=== PATIENT | male | born 1945 | race Two or more races ===

== ENCOUNTER 2024-06-16 10:20 | Inpatient (IN) | payer MEDICARE, OTHER ==
[~2024-06-16] VITALS: Ht 157.5 cm; Wt 57.0 kg
--- NOTE | 2024-06-16 10:32 | ECG ---
[facility] Test Date: 2024-06-16 Test Time: 10:26:16 Pat Name: KEITH RAHMAN Department: ER Room: 0286 Gender: M Transitional Care Manager: MADISYN : 1945 Requested By: WILBERTO TAMEZ Order Number: [id number] Reading MD: Kole Chan Measurements Intervals [place] Rate: 114 P: 52 SC: 139 QRS: -16 QRSD: 96 T: 65 QT: 332 QTc: 458 Interpretive Statements Sinus tachycardia Borderline left axis deviation Electronically Signed On 06-21-2024 15:14:13 PST by Kole Chan Please click the below link to view image of tracing.
--- NOTE | 2024-06-16 10:32 | ED.PDOC ---
Altered Mental Status HPI Comments [age] Year old male brought in by EMS from home for altered mental status. Patient's daughter states the patient had been confused at home today. He was seated on the couch, became extremely pale and looked as though he was going to pass out. He was assisted to the ground by family and did not have any reported injury according to EMS. Patient was noted to be tachycardic in the 130s on arrival by EMS. Patient's daughter states the patient is normally alert and oriented x4. Here the patient is oriented times 3, but is unable to state why he is here and does not recall the events leading to his arrival here. Daughter states this is not his baseline mental status. Time Seen by MD: 10:28 Reviewed Notes: Nurses Notes, Coffee Roaster Notes Allergies: Coded Allergies: NO KNOWN ALLERGIES (Unverified , 06/16/24) Information Source: Patient, Relative (Child) Mode of Arrival: EMS Past Medical History PAST MEDICAL HISTORY: DM, High Lipids, HTN Surgical History: Unobtainable Family History Family History: Pt Confused Social History Smoker: Unknown Alcohol: Unknown Drugs: Unknown Lives In: Home Unable to Obtain due to: Altered Mental Status Physical Exam General Appearance: No Apparent Distress, Thin, Other (Somnolent) HEENT: PERRL/EOMI, Other (Dry mucous membranes) Neck: Full Range of Motion, Non-Tender, Normal Inspection, Supple Respiratory: Lungs Clear, No Accessory Muscle Use, No Respiratory Distress, Normal Breath Sounds Cardiovascular: No Edema, No JVD, Tachycardia Breast Exam: Deferred Gastrointestinal: Non Tender, Soft Genitalia: Deferred Pelvic: Deferred Rectal: Deferred Extremities: Normal inspection, Normal range of motion, Non-tender, No pedal edema Neurologic: Alert (Oriented x3), Normal Affect, Normal Mood, Other (Appears let hargic, occasionally inappropriately answers questions or does not answer, moves all extremities, no gross focal deficit.) Cerebellar Function: Unable to Test, NOT DONE Reflexes: NOT DONE Skin: Dry, Normal Color, Warm Lymphatic: NOT DONE EKG EKG : Comments Sinus tach, rate 114, normal LA and QRS intervals, QTC 458, left axis deviation normal QRS, nonspecific T change. Was a procedure done? Was a procedure done?: No Differential Diagnosis (ALOC) Differential Diagnosis: Dehydration, Hypoglycemia, Encephalopathy, Meningitis, Sepsis, Hypoxemia, Closed Head Injury, CVA, Mass Lesion, SAH, Other (UTI, electrolyte imbalance, mi, arrhythmia, among others) X-Ray, Labs, Meds, VS Vital Signs Date Time Temp Pulse Resp B/P (MAP) Pulse Ox O2 Delivery O2 Flow Rate FiO2 06/16/24 13:57 129 19 91 Room Air* 0 21 06/16/24 13:57 129 18 108/28 (54) 94 06/16/24 13:15 16 94 Room Air* 0 21 06/16/24 10:26 114 06/16/24 10:23 98.8 115 18 145/54 (84) 93 Lab Test 06/16/24 13:20 06/16/24 12:27 06/16/24 11:17 06/16/24 10:53 Range/Units POC Glucose 117 H 70-106 mg/dl Lactic Acid Level 1.1 3.5 *H 0.4-2.0 mmol/L Troponin I High Sensitivity 12 8 </=54 ng/L Influenza Type A Antigen Negative Negative Influenza Type B Antigen Negative Negative SARS-CoV-2 Antigen (Rapid) Negative NEGATIVE White Blood Count 6.6 4.4-10.8 10^3/uL Red Blood Count 3.32 L 4.5-5.90 10^6/uL Hemoglobin 11.2 L 13.5-17.5 g/dL Hematocrit 33.9 L 41.0-53.0 % Mean Corpuscular Volume 102.2 H 80.0-100.0 fL Mean Corpuscular Hemoglobin 33.6 H 28.0-32.0 pg Mean Corpuscular Hemoglobin Concent 32.9 32.0-36.0 g/dL Red Cell Distribution Width 13.4 11.8-14.3 % Platelet Count 144 140-450 10^3/uL Mean Platelet Volume 9.3 6.9-10.8 fL Neutrophils (%) (Auto) 88.6 H 37.0-80.0 % Lymphocytes (%) (Auto) 3.0 L 10.0-50.0 % Monocytes (%) (Auto) 7.9 0.0-12.0 % Eosinophils (%) (Auto) 0.2 0.0-7.0 % Basophils (%) (Auto) 0.3 0.0-2.0 % Neutrophils # (Auto) 5.9 1.6-8.6 10 ^3/uL Lymphocytes # (Auto) 0.2 L 0.4-5.4 10 ^3/uL Monocytes # (Auto) 0.5 0-1.3 10 ^3/uL Eosinophils # (Auto) 0 0-0.8 10 ^3/uL Basophils # (Auto) 0 0-0.2 10 ^3/uL Nucleated Red Blood Cells 0.0 % Sodium Level 140 136-145 mmol/L Potassium Level 5.9 *H 3.5-5.1 mmol/L Chloride Level 108 H 98-107 mmol/L Carbon Dioxide Level 21 20-31 mmol/L Anion Gap 11 5-15 Blood Urea Nitrogen 47 H 9-23 mg/dL Creatinine 3.16 H 0.700-1.30 mg/dL Glomerular Filtration Rate Calc 19 >90 mL/min BUN/Creatinine Ratio 14.9 10.0-20.0 Serum Glucose 115 H 74-106 mg/dL Calcium Level 9.4 8.7-10.4 mg/dL Total Bilirubin < 0.2 L 0.2-1.0 mg/dL Aspartate Amino Transferase (AST) 14 13-40 U/L Alanine Aminotransferase (ALT) 12 7-40 U/L Alkaline Phosphatase 67 46-116 U/L B-Type Natriuretic Peptide 85.54 0-100 pg/mL Total Protein 5.9 5.7-8.2 g/dL Albumin 4.0 3.2-4.8 g/dL Current Medications Medications (Trade) Dose Ordered Sig/Louisa Route Start Time Stop Time Status Last Admin Insulin Human Regular (InsuLIN R) 10 units ONCE ONCE IV 06/16/24 12:30 06/16/24 12:31 DC 06/16/24 13:23 Dextrose 50 ml ONCE ONCE IV 06/16/24 12:30 06/16/24 12:31 DC 06/16/24 13:31 Albuterol (Ventolin Medneb) 20 mg ONCE ONCE NEB 06/16/24 12:30 06/16/24 12:31 DC 06/16/24 13:11 Calcium Gluconate/ Sodium Chloride 50 ml @ 100 mls/hr ONCE ONCE IV 06/16/24 12:30 06/16/24 12:59 DC 06/16/24 13:30 Sodium Bicarbonate 50 ml ONCE ONCE IV 06/16/24 12:30 06/16/24 12:31 DC 06/16/24 13:30 Zirconium Oxide (Lokelma) 10 gm ONCE ONCE PO 06/16/24 12:30 06/16/24 12:31 DC 06/16/24 13:30 Sodium Chloride 1,000 ml @ 1,000 mls/hr Q1H ONCE IV 06/16/24 12:30 06/16/24 13:29 DC 06/16/24 13:30 [place] [id number] Ph: [phone] DIAGNOSTIC IMAGING Diagnostic Imaging Report : [id number] Signed PATIENT: Edilson Tapia ACCT: [id number] UNIT: [id number] : 1945 LOC: ER ROOM / BED: / AGE / SEX: 78 / M ADM STATUS: REG ER SERVICE 33 ORDERING PHYSICIAN: WILBERTO SOL MD PROCEDURE(s): CXRP - CHEST PORTABLE REASON: aloc ORDER NUMBER(s): [id number], ACCESSION NUMBER(s): [id number] CHEST RADIOGRAPH Indication: aloc Technique: Single frontal view of the chest was obtained COMPARISON: None FINDINGS: Lines and Tubes: None Lungs: Clear Pleura: No effusion. No pneumothorax. Cardiomediastinal contours: Unremarkable Bones: Unremarkable IMPRESSION: No acute disease. ATED BY: MAZIN LEDEZMA MD DICTATED DATE/TIME: 06/16/24 105 SIGNED BY: MAZIN LEDEZMA MD SIGNED DATE/TIME: 06/16/24 105 CC: [place] [address] Ph: [phone] DIAGNOSTIC IMAGING Diagnostic Imaging Report : [id number] Signed PATIENT: Edilson Tapia ACCT: [id number] UNIT: [id number] : 1945 LOC: ER ROOM / BED: / AGE / SEX: 78 / M ADM STATUS: REG ER SERVICE 103 ORDERING PHYSICIAN: WILBERTO SOL MD PROCEDURE(s): HWOCT - HEAD WITHOUT CONTRAST REASON: aloc ORDER NUMBER(s): [id number], ACCESSION NUMBER(s): [id number] EXAM: CT HEAD WITHOUT CONTRAST INDICATION: aloc TECHNIQUE: CT of the head without intravenous contrast. Coronal and sagittal reformatted images are submitted. Radiation Dose : 1. Head: CT Dose: CTDI volume is 68.4 mGy. Dose-length product is 1149.7 mGy*cm The dose indicators for CT are the volume Computed Tomography (CT) Dose Index (CTDIvol) and the Dose Length Product (DLP), and are measured in units of mGy and mGy-cm, respectively. These indicators are not patient dose, but values generated from the CT scanner acquisition factors. The report includes radiation exposure data for exposures received during this examination. All CT scans at this medical facility are performed using dose modulation techniques as appropriate to a performed exam including the following: Automated exposure control was utilized; adjustment of the MA and/or KV according to patient size; and use of iterative reconstruction technique. COMPARISON: None FINDINGS: There is no evidence of acute intracranial hemorrhage, extra-axial collection, mass effect, midline shift, herniation or hydrocephalus. Mild diffuse cortical volume loss. The ventricles, sulci and cisterns are age appropriate. The bain-white differentiation is intact. The visualized paranasal sinuses and mastoid air cells are clear. No depressed calvarial fracture. The surrounding soft tissues are unremarkable. IMPRESSION: 1. No evidence of acute intracranial abnormality. ATED BY: KELL LAZO MD DICTATED DATE/TIME: 06/16/24 105 SIGNED BY: KELL LAZO MD SIGNED DATE/TIME: 06/16/24 105 CC: X-Ray, Labs, Meds, VS Comment 78-year-old male with a history of hypertension, diabetes and dyslipidemia presenting with altered mental status, tachycardia and a near syncopal episode at home Vitals remarkable for heart rate 115, BP 145/54, oxygen saturation 93% on room air Exam remarkable for lethargy, dry mucous membranes, confusion Rhythm strip independently interpreted by me: Sinus tach, rate 114, no ectopy. CT head unremarkable Chest x-ray unremarkable CBC unremarkable, metabolic panel remarkable for potassium 5.9, BUN 47, creatinine 3.16, glucose 115, lactate 3.5, troponin negative, BNP pending, UA pending Patient treated with the following in the ED: 2 L 0.9 normal saline regular insulin 10 units IV, D50 50 mL IV, albuterol 20 mg med neb, Lokelma 10 g p.o., sodium bicarb 50 mL IV, calcium gluconate 1 g IV , Zosyn 4.5 g IV, vancomycin 1 g IV. On re-evaluation, patient is still somnolent but arousable. Plan is to admit the patient for electrolyte correction and neurology/nephrology evaluation. Time of 1ST Reevaluation: 13:01 Reevaluation 1ST: Improved Patient Education/Counseling: Diagnosis, Treatment Family Education/Counseling: Diagnosis, Treatment Sepsis Sepsis Reasesment Focused Exam Sepsis focused exam: focus exam completed (1412, blood pressure 79 systolic, tachycardic in the 120s, 2nd normal saline bolus ordered, IV antibiotics ordered.) Departure 1 Departure Time of Disposition: 13:01 Impression: Primary Impression: Metabolic encephalopathy Additional Impressions: Acute renal failure Qualified Codes: N17.9 - Acute kidney failure, unspecified Hyperkalemia Sepsis Qualified Codes: A41.9 - Sepsis, unspecified organism Disposition: 09 ADMITTED INPATIENT Admit to: Tele Condition: Guarded Critical Care Note Critical Care Time?: Yes (55 min-critical care time only) Critical care comment: Critical care time including multiple bedside re-evaluations, review of lab and imaging studies, and discussion of the case with the admitting and consulting providers. Stability Stability form required: No Heart Score Heart Score: Heart Score Response (Comments) Value History N/A 0 EKG N/A 0 Age N/A 0 Risk Factors N/A 0 Troponin N/A 0 Total 0 I personally scribed for WILBERTO SOL MD ([email or web address]) on 06/16/24 at 10:57. Electronically submitted by Yaneth Aguayo ([email or web address]). I personally scribed for WILBERTO SOL MD ([email or web address]) on 06/16/24 at 11:06. Electronically submitted by Yaneth Aguayo ([email or web address]). I personally scribed for WILBERTO SOL MD ([email or web address]) on 06/16/24 at 13:13. Electronically submitted by Yaneth Aguayo ([email or web address]). WILBERTO SOL MD Jun 16, 2024 10:32
--- NOTE | 2024-06-16 10:53 | DVH ---
CHEST RADIOGRAPH Indication: aloc Technique: Single frontal view of the chest was obtained COMPARISON: None FINDINGS: Lines and Tubes: None Lungs: Clear Pleura: No effusion. No pneumothorax. Cardiomediastinal contours: Unremarkable Bones: Unremarkable IMPRESSION: No acute disease.
--- NOTE | 2024-06-16 10:57 | DVH ---
EXAM: CT HEAD WITHOUT CONTRAST INDICATION: aloc TECHNIQUE: CT of the head without intravenous contrast. Coronal and sagittal reformatted images are submitted. Radiation Dose : 1. Head: CT Dose: CTDI volume is 68.4 mGy. Dose-length product is 1149.7 mGy*cm The dose indicators for CT are the volume Computed Tomography (CT) Dose Index (CTDIvol) and the Dose Length Product (DLP), and are measured in units of mGy and mGy-cm, respectively. These indicators are not patient dose, but values generated from the CT scanner acquisition factors. The report includes radiation exposure data for exposures received during this examination. All CT scans at this medical facility are performed using dose modulation techniques as appropriate to a performed exam including the following: Automated exposure control was utilized; adjustment of the MA and/or KV according to patient size; and use of iterative reconstruction technique. COMPARISON: None FINDINGS: There is no evidence of acute intracranial hemorrhage, extra-axial collection, mass effect, midline s hift, herniation or hydrocephalus. Mild diffuse cortical volume loss. The ventricles, sulci and cisterns are age appropriate. The bain-white differentiation is intact. The visualized paranasal sinuses and mastoid air cells are clear. No depressed calvarial fracture. The surrounding soft tissues are unremarkable. IMPRESSION: 1. No evidence of acute intracranial abnormality.
[2024-06-16 11:33] LABS: Basophils # (auto) 0 10 ^3/uL (0-0.2); Eosinophils # (auto) 0 10 ^3/uL (0-0.8); Hemoglobin 11.2 g/dL (13.5-17.5); Lymphocytes # (auto) 0.2 10 ^3/uL (0.4-5.4); Monocytes # (auto) 0.5 10 ^3/uL (0-1.3)
[2024-06-16 11:37] LABS: Basophils % (auto) 0.3 % (0.0-2.0); Eosinophils % (auto) 0.2 % (0.0-7.0); Hematocrit 33.9 % (41.0-53.0); Mean Corpuscular Hemoglobin 33.6 pg (28.0-32.0); Mean Corpuscular Hgb Conc. 32.9 g/dL (32.0-36.0); Mean Corpuscular Volume 102.2 fL (80.0-100.0); Monocytes % (auto) 7.9 % (0.0-12.0); Neutrophils # (auto) 5.9 10 ^3/uL (1.6-8.6); Neutrophils % (auto) 88.6 % (37.0-80.0); Platelet Count (auto) 144 10^3/uL (140-450); Red Blood Cells 3.32 10^6/uL (4.5-5.90); Red Cell Distribution Width 13.4 % (11.8-14.3); White Blood Cell 6.6 10^3/uL (4.4-10.8)
[2024-06-16 11:42] LABS: Alanine Aminotransferase 12 U/L (7-40); Alkaline Phosphatase 67 U/L (46-116); Anion Gap 11 (5-15); Aspartate Aminotransferase 14 U/L (13-40); BUN/Creatinine Ratio 14.9 (10.0-20.0); Calcium 9.4 mg/dL (8.7-10.4); Carbon Dioxide 21 mmol/L (20-31); Sodium 140 mmol/L (136-145); Total Protein 5.9 g/dL (5.7-8.2)
[2024-06-16 11:50] LABS: Bilirubin, Total < 0.2 mg/dL (0.2-1.0); Blood Urea Nitrogen 47 mg/dL (9-23); Chloride 108 mmol/L (98-107); Glucose 115 mg/dL (74-106)
[2024-06-16 11:53] LABS: Lactic Acid w/Reflex 3.5 mmol/L (0.4-2.0); Potassium 5.9 mmol/L (3.5-5.1)
[2024-06-16 12:43] LABS: Rapid Influenza A Negative (Negative); Rapid Influenza B Negative (Negative)
[2024-06-16 12:51] LABS: COVID19 ANTIGEN SOFIA FIA NEGATIVE (NEGATIVE)
[2024-06-16] MEDS: ALBUTEROL SULF 2.5 MG/0.5ML(0.5%) NEB SOLN NEB ONE (13:11)
[2024-06-16] MEDS: InsuLIN REG 1unit/0.01ml Soln (100units/ml) IV ONE (13:23)
[2024-06-16] MEDS: SODIUM ZIRCONIUM CYCL 10 GM PAK PO ONE (13:30)
[2024-06-16] MEDS: CALCIUM GLUC 1,000mg/50ml-NS 50 ML IV ONE (13:30)
[2024-06-16] MEDS: SODIUM BICARB 8.4% 50Meq/50ml SYR Vial IV ONE (13:30)
[2024-06-16] MEDS: SODIUM CHLORIDE 0.9% 1,000 ML IV ONE ×3 (13:30→14:33)
[2024-06-16] MEDS: DEXTROSE (50%) 50ML SYRG IV ONE (13:31)
[2024-06-16 13:57] VITALS: PULSE 129; RESP 19; O2SAT 91
[2024-06-16] MEDS: PIPERACILLIN-TAZO 4.5GM 100 ML IV ONE (14:46)
[2024-06-16] MEDS: VANCOMYCIN 1GM/250ML KIT 250 ML IV ONE (15:09)
--- NOTE | 2024-06-16 15:12 | DVH ---
CHEST RADIOGRAPH Indication: S/P CENTRAL LINE PLACEMENT Technique: Single frontal view of the chest was obtained Comparison: XY CHEST PORTABLE on DOS: 06/16/24 FINDINGS: Lines and Tubes: Left internal jugular catheter in place with the tip at the cavoatrial junction. Lungs: Decreased inspiratory effort when compared to chest x-ray of 10:41 a.m same day. Pleura: No effusion. No pneumothorax. Cardiomediastinal contours: Unremarkable Bones: No acute osseous abnormality. IMPRESSION: 1. Decreased inspiratory effort when compared to previous study 10:41 a.m.. 2. Left internal jugular catheter in place at the cavoatrial junction. HS:Y
[2024-06-16] MEDS: NOREPINEPHRINE BITARTRATE 16 MG in SODIUM CHL 0.9% 234 ML IV SCH (16:36)
[2024-06-16] MEDS: ACETAMINOPHEN 325 MG TAB PO PRN (17:27)
[2024-06-16 17:37] LABS: Urine Bacteria None Seen /hpf (None Seen)
[2024-06-16 17:52] LABS: Urine Blood Negative /uL (Negative); Urine Clarity Clear (Clear); Urine Color Yellow (Yellow); Urine Hyaline Cast FEW /lpf (0 - 2); Urine Protein, UAD TRACE (Negative); Urine Specific Gravity 1.016 (1.001-1.035); Urine Squamous Epithelial Cell None Seen /hpf (<5); Urine Urobilinogen Normal (Negative); Urine WBC <1 /hpf (0 - 3); Urine pH 5.5 (5.0-9.0)
[2024-06-16 19:30] VITALS: O2SAT 91
[2024-06-16] MEDS ORDERED: ONDANSETRON HCL 4 MG/2 ML VIAL IV PRN (19:30)
[2024-06-16] MEDS ORDERED: NITROGLYCERIN 0.4 MG SL TAB SL PRN (19:30)
[2024-06-16] MEDS ORDERED: ACETAMINOPHEN 325 MG TAB PO PRN (19:30)
[2024-06-16] MEDS ORDERED: MORPHINE SULFATE INJ 2 MG/ml SYRG IV PRN (19:30)
[2024-06-16 20:16] LABS: Alanine Aminotransferase 11 U/L (7-40); Albumin 3.5 g/dL (3.2-4.8); Alkaline Phosphatase 55 U/L (46-116); Anion Gap 13 (5-15); Aspartate Aminotransferase 20 U/L (13-40); Potassium 4.1 mmol/L (3.5-5.1); Sodium 142 mmol/L (136-145)
--- NOTE | 2024-06-16 20:22 | DVHHP2 ---
History of Present Illness Reason for Visit: Altered mental status History of Present Illness 78-year-old male presents for evaluation of altered mental status. Patient was noted to be slightly confused at home where they checked his blood pressure was noted to be low. In route patient was noted to be tachycardic in the 130s on arrival patient's blood pressure was in the 70s. Patient is currently oriented x3. Denies chest pain or shortness for breath. Past Medical History Hypertension, dyslipidemia and diabetes mellitus Past Surgical History Denies Family History Noncontributory Smoke: No ALCOHOL: none Drugs: None Lives: with Family Review of Systems Review of Systems Review of systems are currently negative otherwise addressed in HPI Allergies: Coded Allergies: NO KNOWN ALLERGIES (Unverified , 06/16/24) Medications Current Medications Medications Dose Ordered Sig/Louisa Route Start Time Stop Time Status Last Admin Dose Admin Norepinephrine Bitartrate 16 mg/ Sodium Chloride 250 ml @ 1.875 mls/ hr Q24H IV 06/16/24 16:15 06/16/24 16:36 1.875 MLS/HR Acetaminophen 650 mg Q4HP PRN PO 06/16/24 17:15 06/16/24 17:27 650 MG Ondansetron HCl 4 mg Q4HP PRN IV 06/16/24 19:30 UNV Acetaminophen 650 mg Q6HP PRN PO 06/16/24 19:30 UNV Nitroglycerin 0.4 mg Q5MINP PRN SL 06/16/24 19:30 UNV Morphine Sulfate 2 mg Q30M PRN IV 06/16/24 19:30 UNV Ceftriaxone Sodium 50 ml @ 100 mls/hr DAILY@09 IV 06/17/24 09:00 UNV Exam Vital Signs Vital Signs Date Time Temp Pulse Resp B/P (MAP) Pulse Ox O2 Delivery O2 Flow Rate FiO2 06/16/24 20:00 108 15 116/95 (102) 90 06/16/24 19:30 Room Air* 0 21 06/16/24 18:27 98.7 Exam Gen: 78-year-old male in mild distress Skin: Warm, dry, normal color and texture, no rash. HEENT: Normocephalic atraumatic, mucous membranes moist and pink. Neck: Cervical and supraclavicular nodes normal without enlargement, trachea is midline, thyroid gland is normal without masses. Pulmonary: Clear to auscultation and percussion bilaterally. Cardiac: Regular rate and rhythm. No murmur Abdomen: Soft, nontender, nondistended, bowel sounds present all 4 quadrants, no guarding, no rigidity, no organomegaly. Extremities: No cyanosis, clubbing, no edema Neuro: Cranial nerves II through XII grossly intact, normal affect and speech, no focal motor deficits. Labs/Xrays ORDERING PHYSICIAN: WILBERTO SOL MD PROCEDURE(s): CXRP - CHEST PORTABLE REASON: aloc ORDER NUMBER(s): [id number], ACCESSION NUMBER(s): [id number] CHEST RADIOGRAPH Indication: aloc Technique: Single frontal view of the chest was obtained COMPARISON: None FINDINGS: Lines and Tubes: None Lungs: Clear Pleura: No effusion. No pneumothorax. Cardiomediastinal contours: Unremarkable Bones: Unremarkable IMPRESSION: No acute disease. RING PHYSICIAN: WILBERTO SOL MD PROCEDURE(s): HWOCT - HEAD WITHOUT CONTRAST REASON: aloc ORDER NUMBER(s): [id number], ACCESSION NUMBER(s): [id number] EXAM: CT HEAD WITHOUT CONTRAST INDICATION: aloc TECHNIQUE: CT of the head without intravenous contrast. Coronal and sagittal reformatted images are submitted. Radiation Dose : 1. Head: CT Dose: CTDI volume is 68.4 mGy. Dose-length product is 1149.7 mGy*cm The dose indicators for CT are the volume Computed Tomography (CT) Dose Index (CTDIvol) and the Dose Length Product (DLP), and are measured in units of mGy and mGy-cm, respectively. These indicators are not patient dose, but values generated from the CT scanner acquisition factors. The report includes radiation exposure data for exposures received during this examination. All CT scans at this medical facility are performed using dose modulation techniques as appropriate to a performed exam including the following: Automated exposure control was utilized; adjustment of the MA and/or KV according to patient size; and use of iterative reconstruction technique. COMPARISON: None FINDINGS: There is no evidence of acute intracranial hemorrhage, extra-axial collection, mass effect, midline shift, herniation or hydrocephalus. Mild diffuse cortical volume loss. The ventricles, sulci and cisterns are age appropriate. The bain-white differentiation is intact. The visualized paranasal sinuses and mastoid air cells are clear. No depressed calvarial fracture. The surrounding soft tissues are unremarkable. IMPRESSION: 1. No evidence of acute intracranial abnormality. Labs Test 06/16/24 18:21 06/16/24 17:10 06/16/24 13:20 06/16/24 12:27 Range/Units Urine Color Yellow Yellow Urine Clarity Clear Clear Urine pH 5.5 5.0-9.0 Urine Specific [place] 1.016 1.001-1.035 Urine Protein Trace H Negative Urine Ketones Negative Negative Urine Blood Negative Negative /uL Urine Nitrite Negative Negative Urine Bilirubin Negative Negative Urine Urobilinogen Normal Negative mg/dL Urine Leukocyte Esterase Negative Negative /uL Urine RBC 1 0 - 3 /hpf Urine WBC <1 0 - 3 /hpf Urine Squamous Epithelial Cells None seen <5 /hpf Urine Bacteria None seen None Seen /hpf Urine Hyaline Casts Few 0 - 2 /lpf Urine Glucose Normal Normal mg/dL POC Glucose 117 H 70-106 mg/dl Lactic Acid Level 1.1 0.4-2.0 mmol/L Troponin I High Sensitivity 12 </=54 ng/L Test 06/16/24 11:17 06/16/24 10:53 Range/Units Influenza Type A Antigen Negative Negative Influenza Type B Antigen Negative Negative SARS-CoV-2 Antigen (Rapid) Negative NEGATIVE White Blood Count 6.6 4.4-10.8 10^3/uL Red Blood Count 3.32 L 4.5-5.90 10^6/uL Hemoglobin 11.2 L 13.5-17.5 g/dL Hematocrit 33.9 L 41.0-53.0 % Mean Corpuscular Volume 102.2 H 80.0-100.0 fL Mean Corpuscular Hemoglobin 33.6 H 28.0-32.0 pg Mean Corpuscular Hemoglobin Concent 32.9 32.0-36.0 g/dL Red Cell Distribution Width 13.4 11.8-14.3 % Platelet Count 144 140-450 10^3/uL Mean Platelet Volume 9.3 6.9-10.8 fL Neutrophils (%) (Auto) 88.6 H 37.0-80.0 % Lymphocytes (%) (Auto) 3.0 L 10.0-50.0 % Monocytes (%) (Auto) 7.9 0.0-12.0 % Eosinophils (%) (Auto) 0.2 0.0-7.0 % Basophils (%) (Auto) 0.3 0.0-2.0 % Neutrophils # (Auto) 5.9 1.6-8.6 10 ^3/uL Lymphocytes # (Auto) 0.2 L 0.4-5.4 10 ^3/uL Monocytes # (Auto) 0.5 0-1.3 10 ^3/uL Eosinophils # (Auto) 0 0-0.8 10 ^3/uL Basophils # (Auto) 0 0-0.2 10 ^3/uL Nucleated Red Blood Cells 0.0 % B-Type Natriuretic Peptide 85.54 0-100 pg/mL Assessment/Plan Assessment/Plan Assessment Symptomatic hypotension Rule out sepsis Acute kidney injury Diabetes mellitus Plan Admit the patient to [facility] to the hospitalist Torresn Blood cultures pending Maintenance IV fluids Echocardiogram pending Resume home medications Continue treatment per orders. Plan discussed with: Patient My Orders Orders - DON CHILDRESS Procedure Category Date Status Time Basic Metabolic Panel LAB 06/17/24 Verified 04:00 *Dr. [facility] CONS 06/16/24 Transmitted -[place] 19:20 Admit ADMIT 06/16/24 Transmitted 19:20 Ondansetron Hcl PHA 06/16/24 Logged (Zofran) 19:30 Complete Blood Count LAB 06/17/24 Verified 04:00 Echo 2d Mode Cardiac US 06/16/24 Logged DOP 19:20 Condition: Critical BORIS 06/16/24 In Process 19:20 Acetaminophen Tablet PHA 06/16/24 Logged (Tylenol Tablet) 19:30 Bedrest With Bathroom BORIS 06/16/24 In Process Privileg 19:20 Nitroglycerin PHA 06/16/24 Logged Sublingual (Ntrostat 19:30 Morphine Sulfate PHA 06/16/24 Logged Injection 19:30 Stat Ekg For Chest BORIS 06/16/24 In Process Pain 19:20 Notify Of Changes BORIS 06/16/24 In Process From Base 19:20 Psych Social Worker For BORIS 06/16/24 In Process 24 Hours 19:20 Emergency Dysrhythmia [facility] 06/16/24 In Process Protocol 19:20 Rhythm Strips Once BORIS 06/16/24 In Process Every Shift 19:20 Oxygen By Nasal RT 06/16/24 Transmitted Cannula 19:20 Ceftriaxone 1gm/50ml PHA 06/17/24 Logged D5w (Rocephin) 09:00 Date of Service: Jun 16, 2024 Billing Provider: DON CHILDRESS Common Visit Codes: [id number] INP/OBS CARE (HIGH) DON CHILDRESS Jun 16, 2024 20:22
[2024-06-16 20:26] LABS: Bilirubin, Total 0.2 mg/dL (0.2-1.0); Blood Urea Nitrogen 37 mg/dL (9-23); Calcium 8.5 mg/dL (8.7-10.4); Carbon Dioxide 18 mmol/L (20-31); Chloride 111 mmol/L (98-107); Glucose 126 mg/dL (74-106); Total Protein 5.3 g/dL (5.7-8.2)
[2024-06-16] MEDS: cefTRIAXone 1GM/50ML D5W 50 ML IV SCH (20:45)
[2024-06-17 07:32] LABS: Basophils # (auto) 0 10 ^3/uL (0-0.2); Eosinophils # (auto) 0 10 ^3/uL (0-0.8); Hemoglobin 10.3 g/dL (13.5-17.5); Lymphocytes # (auto) 0.6 10 ^3/uL (0.4-5.4); Mean Corpuscular Hemoglobin 34.1 pg (28.0-32.0)
[2024-06-17 07:35] LABS: Basophils % (auto) 0.3 % (0.0-2.0); Eosinophils % (auto) 0.1 % (0.0-7.0); Hematocrit 30.8 % (41.0-53.0); Mean Corpuscular Hgb Conc. 33.5 g/dL (32.0-36.0); Mean Corpuscular Volume 101.8 fL (80.0-100.0); Monocytes # (auto) 0.6 10 ^3/uL (0-1.3); Monocytes % (auto) 8.8 % (0.0-12.0); Neutrophils # (auto) 5.7 10 ^3/uL (1.6-8.6); Neutrophils % (auto) 81.8 % (37.0-80.0); Platelet Count (auto) 129 10^3/uL (140-450); Red Blood Cells 3.02 10^6/uL (4.5-5.90); Red Cell Distribution Width 13.6 % (11.8-14.3)
[2024-06-17 07:37] LABS: Potassium 4.6 mmol/L (3.5-5.1); Sodium 142 mmol/L (136-145)
[2024-06-17 07:38] LABS: Anion Gap 6 (5-15); Carbon Dioxide 24 mmol/L (20-31); Chloride 112 mmol/L (98-107)
[2024-06-17 07:39] LABS: Calcium 8.7 mg/dL (8.7-10.4)
[2024-06-17 07:43] LABS: BUN/Creatinine Ratio 13.6 (10.0-20.0); Blood Urea Nitrogen 37 mg/dL (9-23); Glucose 90 mg/dL (74-106)
[2024-06-17 08:00] VITALS: PULSE 88; RESP 16; O2SAT 97
--- NOTE | 2024-06-17 12:16 | DVHSR ---
APPROVED REPORT EXAM: Two-dimensional and M-mode echocardiogram with Doppler and color Doppler. Blood Pressure: 129/54 mmHg INDICATION EF RISK FACTORS Height: 5'2, Weight: 120 DIMENSIONS LVDd4.4 (3.8-5.7cm)LA (2D)3.3 (1.9-4.0cm)Aortic Root3.6 (2.0-3.7cm) LVDs3.2 (2.5-4.0cm)LA (MM) (1.9-4.0cm)Aortic Cusp Exc1.5 (1.5-2.0cm) EF (%) 55.0 (55-70%)Rt. Atrium2.7 (1.9-4.0cm)Asc. Aorta cm IVSd0.8 (0.7-1.1cm)RV (D) (1.8-2.4cm) PWd0.7 (0.7-1.1cm) Mitral Valve MitralMitral Stenosis E wave0.81m/sMV Mean GR.mmHg A wave1.14m/sMV Peak GR.mmHg E/A ratio0.72D MVAcm2 DECEL [id number] 1/2 [place] Aortic Valve Aortic ValveAortic Stenosis V11.28m/Sridhar Mean GR.4mmHg V21.23m/Sridhar Peak GR.6mmHg LVOT Diameter1.4 (1.8-2.4cm)Doppler AVA1.60cm2 Pulmonic Valve V21.04m/s LEFT VENTRICLE The left ventricle is of normal size. Wall thickness is normal. Ejection fraction is normal and is estimated at 55-60%. No regional wall motion abnormalities. Diastolic function is indeterminate. RIGHT VENTRICLE The right ventricle is of normal size. Right ventricular systolic function is normal. ATRIA Both atria are of normal size. MITRAL VALVE Normal structure and function. No significant regurgitation. PULMONIC VALVE Likely normal. TRICUSPID VALVE Normal structure and function. There is trace tricuspid regurgitation. PA systolic pressure isn't a dequately estimated. AORTIC VALVE Normal structure and function. GREAT VESSELS The aortic root is of normal size. PERICARDIAL EFFUSION No pericardial effusion. IVC is not well visualized. Other Information Technically limited study due to body habitus. Conclusion The study is technically limited. Normal left ventricular size and systolic function. Ejection fraction is estimated at 55-60%. Normal right ventricular size and systolic function. No hemodynamically significant valvular disease. PA systolic pressure could not be adequately estimated.
[2024-06-17] MEDS: LACTATED RINGER'S 1,000 ML IV SCH (15:11)
--- NOTE | 2024-06-17 15:22 | DVHINCON2 ---
Date of service: Jun 17, 2024 Referring Physician Hospitalist Reason for Consultation Acute kidney injury History of Present Illness 78-year-old male patient is a poor historian unable to obtain history present presents to the hospital with altered mental state. Upon my interview patient says he is feeling better. Nephrology is consulted due to elevated creatinine level. I do not have any baseline for evaluation. He denies any previous history of kidney problems. He currently has a central line in place he is currently not on pressors. Presentation he was found to be hypotensive Allergies: Coded Allergies: NO KNOWN ALLERGIES (Unverified , 06/16/24) Current Medications Current Medications Medications (Trade) Dose Ordered Sig/Louisa Route PRN Reason Start Time Stop Time Status Last Admin Norepinephrine Bitartrate 16 mg/ Sodium Chloride 250 ml @ 1.875 mls/ hr Q24H IV 06/16/24 16:15 06/16/24 16:36 Acetaminophen (Tylenol Tablet) 650 mg Q4HP PRN PO MILD PAIN (1-3 PAIN SCALE) 06/16/24 17:15 06/16/24 17:27 Ondansetron HCl (Zofran) 4 mg Q4HP PRN IV NAUSEA / VOMITING 06/16/24 19:30 Acetaminophen (Tylenol Tablet) 650 mg Q6HP PRN PO PAIN SCALE 1-3 OR TEMP>100.4 06/16/24 19:30 Nitroglycerin (Ntrostat Sublingual) 0.4 mg Q5MINP PRN SL FOR CHEST PAIN 06/16/24 19:30 Morphine Sulfate 2 mg Q30M PRN IV FOR CHEST PAIN 06/16/24 19:30 Ceftriaxone Sodium 50 ml @ 100 mls/hr DAILY@09 IV 06/16/24 20:24 06/17/24 10:25 Lactated Ringer's 1,000 ml @ 75 mls/hr [id number] IV 06/17/24 14:45 06/17/24 15:11 Review of Systems Altered mental status H&P Exam Vital Signs/I&O Vital Sign Date Time Temp Pulse Resp B/P (MAP) Pulse Ox O2 Delivery O2 Flow Rate FiO2 06/17/24 14:00 87 15 125/68 (87) 99 06/17/24 10:00 99.2 99.2 06/17/24 08:00 Nasal Cannula* 2 28 Intake and Output 06/16/24 06/17/24 19:00 07:00 Intake Total 4407.500 ml Output Total 700 ml Balance 4407.500 ml -700 ml Intake IV Total 4407.500 ml Output Urine Total 700 ml Physical Exam Elderly male Nonacute distress Mildly confused Abdomen is soft No pitting edema Cheema catheter Left IJ central line Labs/Diagnostic Data Labs/Diagnostic Data Laboratory Tests Test 06/17/24 06:44 06/16/24 18:21 06/16/24 17:10 06/16/24 13:20 Range/Units White Blood Count 7.0 4.4-10.8 10^3/uL Red Blood Count 3.02 L 4.5-5.90 10^6/uL Hemoglobin 10.3 L 13.5-17.5 g/dL Hematocrit 30.8 L 41.0-53.0 % Mean Corpuscular Volume 101.8 H 80.0-100.0 fL Mean Corpuscular Hemoglobin 34.1 H 28.0-32.0 pg Mean Corpuscular Hemoglobin Concent 33.5 32.0-36.0 g/dL Red Cell Distribution Width 13.6 11.8-14.3 % Platelet Count 129 L 140-450 10^3/uL Mean Platelet Volume 8.9 6.9-10.8 fL Neutrophils (%) (Auto) 81.8 H 37.0-80.0 % Lymphocytes (%) (Auto) 9.0 L 10.0-50.0 % Monocytes (%) (Auto) 8.8 0.0-12.0 % Eosinophils (%) (Auto) 0.1 0.0-7.0 % Basophils (%) (Auto) 0.3 0.0-2.0 % Neutrophils # (Auto) 5.7 1.6-8.6 10 ^3/uL Lymphocytes # (Auto) 0.6 0.4-5.4 10 ^3/uL Monocytes # (Auto) 0.6 0-1.3 10 ^3/uL Eosinophils # (Auto) 0 0-0.8 10 ^3/uL Basophils # (Auto) 0 0-0.2 10 ^3/uL Nucleated Red Blood Cells 0.0 % Sodium Level 142 142 136-145 mmol/L Potassium Level 4.6 4.1 3.5-5.1 mmol/L Chloride Level 112 H 111 H 98-107 mmol/L Carbon Dioxide Level 24 18 L 20-31 mmol/L Anion Gap 6 13 5-15 Blood Urea Nitrogen 37 H 37 #H 9-23 mg/dL Creatinine 2.73 H 2.84 H 0.700-1.30 mg/dL Glomerular Filtration Rate Calc 23 22 >90 mL/min BUN/Creatinine Ratio 13.6 13.0 10.0-20.0 Serum Glucose 90 126 H 74-106 mg/dL Calcium Level 8.7 8.5 L 8.7-10.4 mg/dL Total Bilirubin 0.2 0.2-1.0 mg/dL Aspartate Amino Transferase (AST) 20 13-40 U/L Alanine Aminotransferase (ALT) 11 7-40 U/L Alkaline Phosphatase 55 46-116 U/L Total Protein 5.3 L 5.7-8.2 g/dL Albumin 3.5 3.2-4.8 g/dL Urine Color Yellow Yellow Urine Clarity Clear Clear Urine pH 5.5 5.0-9.0 Urine Specific [place] 1.016 1.001-1.035 Urine Protein Trace H Negative Urine Ketones Negative Negative Urine Blood Negative Negative /uL Urine Nitrite Negative Negative Urine Bilirubin Negative Negative Urine Urobilinogen Normal Negative mg/dL Urine Leukocyte Esterase Negative Negative /uL Urine RBC 1 0 - 3 /hpf Urine WBC <1 0 - 3 /hpf Urine Squamous Epithelial Cells None seen <5 /hpf Urine Bacteria None seen None Seen /hpf Urine Hyaline Casts Few 0 - 2 /lpf Urine Glucose Normal Normal mg/dL POC Glucose 117 H 70-106 mg/dl Test 06/16/24 12:27 06/16/24 11:17 06/16/24 10:53 Range/Units Lactic Acid Level 1.1 3.5 *H 0.4-2.0 mmol/L Troponin I High Sensitivity 12 8 </=54 ng/L Influenza Type A Antigen Negative Negative Influenza Type B Antigen Negative Negative SARS-CoV-2 Antigen (Rapid) Negative NEGATIVE White Blood Count 6.6 4.4-10.8 10^3/uL Red Blood Count 3.32 L 4.5-5.90 10^6/uL Hemoglobin 11.2 L 13.5-17.5 g/dL Hematocrit 33.9 L 41.0-53.0 % Mean Corpuscular Volume 102.2 H 80.0-100.0 fL Mean Corpuscular Hemoglobin 33.6 H 28.0-32.0 pg Mean Corpuscular Hemoglobin Concent 32.9 32.0-36.0 g/dL Red Cell Distribution Width 13.4 11.8-14.3 % Platelet Count 144 140-450 10^3/uL Mean Platelet Volume 9.3 6.9-10.8 fL Neutrophils (%) (Auto) 88.6 H 37.0-80.0 % Lymphocytes (%) (Auto) 3.0 L 10.0-50.0 % Monocytes (%) (Auto) 7.9 0.0-12.0 % Eosinophils (%) (Auto) 0.2 0.0-7.0 % Basophils (%) (Auto) 0.3 0.0-2.0 % Neutrophils # (Auto) 5.9 1.6-8.6 10 ^3/uL Lymphocytes # (Auto) 0.2 L 0.4-5.4 10 ^3/uL Monocytes # (Auto) 0.5 0-1.3 10 ^3/uL Eosinophils # (Auto) 0 0-0.8 10 ^3/uL Basophils # (Auto) 0 0-0.2 10 ^3/uL Nucleated Red Blood Cells 0.0 % Sodium Level 140 136-145 mmol/L Potassium Level 5.9 *H 3.5-5.1 mmol/L Chloride Level 108 H 98-107 mmol/L Carbon Dioxide Level 21 20-31 mmol/L Anion Gap 11 5-15 Blood Urea Nitrogen 47 H 9-23 mg/dL Creatinine 3.16 H 0.700-1.30 mg/dL Glomerular Filtration Rate Calc 19 >90 mL/min BUN/Creatinine Ratio 14.9 10.0-20.0 Serum Glucose 115 H 74-106 mg/dL Calcium Level 9.4 8.7-10.4 mg/dL Total Bilirubin < 0.2 L 0.2-1.0 mg/dL Aspartate Amino Transferase (AST) 14 13-40 U/L Alanine Aminotransferase (ALT) 12 7-40 U/L Alkaline Phosphatase 67 46-116 U/L B-Type Natriuretic Peptide 85.54 0-100 pg/mL Total Protein 5.9 5.7-8.2 g/dL Albumin 4.0 3.2-4.8 g/dL Assessment Acute kidney injury hemodynamically mediated in the setting of hypotension and decreased renal perfusion Chronic kidney disease unspecified baseline unknown Hypotension Altered mental status rule out sepsis Agree with IV fluid hydration Cardiology on the case Status post echocardiogram Avoid contrast studies Patient currently has Cheema catheter with urine output that is improving. We will hold off on ultrasound of the kidney at this time Plan discussed with: Patient MIKE HURTADO MD Jun 17, 2024 15:22
--- NOTE | 2024-06-17 15:34 | DVHPN2 ---
Subjective Patient reports having generalized weakness. Reviewed: Care Plan, Labs, Medications Changes from previous H/P or p: No Changes General: Per HPI Objective Vitals Vital Signs Date Time Temp Pulse Resp B/P (MAP) Pulse Ox O2 Delivery O2 Flow Rate FiO2 06/17/24 14:00 87 15 125/68 (87) 99 06/17/24 10:00 99.2 99.2 06/17/24 08:00 Nasal Cannula* 2 28 Intake/Output Intake and Output 06/17/24 07:00 Intake Total 4407.500 ml Output Total 700 ml Balance 3707.500 ml Intake IV Total 4407.500 ml Output Urine Total 700 ml General Appearance: Alert, Oriented X3, Cooperative, No acute distress HEENT: Atraumatic Lungs: Clear to auscultation, Normal air movement Cardiovascular: Normal S1, Normal S2 Abdomen: Normal bowel sounds, Soft, No tenderness Genitourinary: No Apparent Abnormalities Neuro: Normal speech Psych/Mental Status: Mental status NL Medications Current Medications Medications Dose Ordered Sig/Louisa Route Start Time Stop Time Status Last Admin Dose Admin Norepinephrine Bitartrate 16 mg/ Sodium Chloride 250 ml @ 1.875 mls/ hr Q24H IV 06/16/24 16:15 06/16/24 16:36 1.875 MLS/HR Acetaminophen 650 mg Q4HP PRN PO 06/16/24 17:15 06/16/24 17:27 650 MG Ondansetron HCl 4 mg Q4HP PRN IV 06/16/24 19:30 Acetaminophen 650 mg Q6HP PRN PO 06/16/24 19:30 Nitroglycerin 0.4 mg Q5MINP PRN SL 06/16/24 19:30 Morphine Sulfate 2 mg Q30M PRN IV 06/16/24 19:30 Ceftriaxone Sodium 50 ml @ 100 mls/hr DAILY@09 IV 06/16/24 20:24 06/17/24 10:25 100 MLS/HR Lactated Ringer's 1,000 ml @ 75 mls/hr [id number] IV 06/17/24 14:45 06/17/24 15:11 75 MLS/HR Laboratory Results Laboratory Tests 06/17/24 06:44 Chemistry Test 06/16/24 18:21 06/17/24 06:44 Albumin 3.5 g/dL (3.2-4.8) Calcium Level 8.5 mg/dL (8.7-10.4) L 8.7 mg/dL (8.7-10.4) Total Protein 5.3 g/dL (5.7-8.2) L LFT Test 06/16/24 18:21 Alanine Aminotransferase (ALT) 11 U/L (7-40) Alkaline Phosphatase 55 U/L (46-116) Aspartate Amino Transferase (AST) 20 U/L (13-40) Total Bilirubin 0.2 mg/dL (0.2-1.0) HgA1c, TSH Test 06/17/24 06:44 Hemoglobin A1c Pending Urinalysis Test 06/16/24 17:10 Urine Color Yellow (Yellow) Urine Clarity Clear (Clear) Urine pH 5.5 (5.0-9.0) Urine Specific [place] 1.016 (1.001-1.035) Urine Protein Trace (Negative) H Urine Ketones Negative (Negative) Urine Blood Negative /uL (Negative) Urine Nitrite Negative (Negative) Urine Bilirubin Negative (Negative) Urine Urobilinogen Normal mg/dL (Negative) Urine Leukocyte Esterase Negative /uL (Negative) Urine RBC 1 /hpf (0 - 3) Urine WBC <1 /hpf (0 - 3) Urine Squamous Epithelial Cells None seen /hpf (<5) Urine Bacteria None seen /hpf (None Seen) Urine Hyaline Casts Few /lpf (0 - 2) Urine Glucose Normal mg/dL (Normal) Microbiology Microbiology Date/Time Source Procedure Growth Status 06/16/24 17:10 Urine - Cheema Port Urine Culture - Preliminary Resulted 06/16/24 10:53 Blood Blood Culture - Preliminary NO GROWTH AFTER 24 HOURS OF INCUBATION. Resulted Labs and/or images reviewed: Labs reviewed by me, Image(s) reviewed by me Assessment/Plan Assessment/Plan Impression: -metabolic encephalopathy, unknown etiology -acute,? Chronic renal failure -primary hypertension -according to history of diabetes mellitus -reported history of hypertension -reported history of dyslipidemia Plan: -patient continues to be a poor historian. Unable to find patient's previous medical records are home medications at this time. Patient was able to follow commands. -kidney ultrasound -check inflammatory markers, A1c -check MARJORIE, rheumatoid factor -gentle IV hydration -echocardiogram reviewed -please obtain home medications -repeat labs in a.m. Critical care time spent with patient discussing and formulating plan of care: 40 minutes. This does not include time spent performing procedures. This medical document was created using an electronic medical record system with [employer] dictation system. Although this document has been carefully reviewed, there may still be some phonetic and typographical errors. These areas are purely typographical due to imperfections of the software programs, and do not reflect any compromise in the patient's medical care. Plan discussed with: Patient, Other (RN) My Orders Orders - STEPHANY JULIO NP Procedure Category Date Status Time Hemoglobin A1c LAB 06/17/24 In Process 14:41 Erythrocyte LAB 06/17/24 In Process Sedimentation Rate 14:41 C-Reactive Protein LAB 06/17/24 In Process 14:41 Kidney US 06/17/24 Logged 14:41 Lactated Ringer's PHA 06/17/24 In Process 14:45 Rheumatoid Arthritis LAB 06/17/24 Logged Factor 15:25 Marjorie; Comprehensive LAB 06/17/24 Logged Panel 15:25 Drug Screen LAB 06/17/24 Transmitted 15:29 Date of Service: Jun 17, 2024 Billing Provider: STEPHANY JULIO NP Common Visit Codes: [id number] INP/OBS CARE(HIGH) STEPHANY JULIO NP Jun 17, 2024 15:34
[2024-06-17 16:05] VITALS: BP 144/69; PULSE 97; RESP 18; TEMP 100; O2SAT 93
[2024-06-17 16:06] LABS: Erythrocyte Sedimentation Rate 7 mm/hr (0-20)
[2024-06-17 16:36] VITALS: RESP 18
[2024-06-17 17:00] VITALS: BP 144/69; PULSE 89; RESP 18; TEMP 100.2; O2SAT 92
[2024-06-17] MEDS ORDERED: AMLO1TAB22 PO (18:52)
[2024-06-17] MEDS ORDERED: ATOR20TA50 PO (18:52)
[2024-06-17] MEDS ORDERED: CETI10CA PO (18:52)
[2024-06-17] MEDS ORDERED: MULT-1018 PO (18:53)
[2024-06-17] MEDS ORDERED: GABA-1250 PO (18:53)
[2024-06-17] MEDS ORDERED: TERA10CA19 PO (18:54)
[2024-06-17] MEDS ORDERED: PRED1PAK8 PO (19:43)
[2024-06-17 20:00] VITALS: PULSE 87; RESP 19; O2SAT 94
[2024-06-17 21:00] VITALS: BP 147/65; PULSE 87; RESP 19; TEMP 97.7; O2SAT 99
[2024-06-18 05:00] VITALS: BP 124/53; PULSE 70; RESP 19; TEMP 99.7; O2SAT 93
[2024-06-18 07:03] LABS: Potassium 4.1 mmol/L (3.5-5.1); Sodium 142 mmol/L (136-145)
[2024-06-18 07:04] LABS: Anion Gap 6 (5-15); Calcium 8.8 mg/dL (8.7-10.4); Carbon Dioxide 24 mmol/L (20-31)
[2024-06-18 07:09] LABS: BUN/Creatinine Ratio 14.7 (10.0-20.0); Glucose 87 mg/dL (74-106)
[2024-06-18 07:10] LABS: Blood Urea Nitrogen 32 mg/dL (9-23); Chloride 112 mmol/L (98-107)
[2024-06-18 08:30] VITALS: PULSE 65; RESP 17; O2SAT 94
[2024-06-18 08:37] VITALS: BP 118/65; PULSE 65; RESP 17; TEMP 99.3; O2SAT 94
--- NOTE | 2024-06-18 08:50 | DVH ---
INDICATION: renal failure TECHNIQUE: Multiple real-time sonographic images of the kidneys and bladder were obtained. COMPARISON: None FINDINGS: The right kidney measures 8 cm in length, which is normal in size. There is normal echogenicity of th e right kidney. No hydronephrosis. The left kidney measures 9 cm in length, which is normal in size. There is normal echogenicity of the left kidney. No hydronephrosis. Bilateral perinephric fluid surrounding measuring 5cm involving both kidneys. No large intraluminal masses are seen in the bladder. Prior to voiding the bladder volume measures volume 8 cc. Following voiding, the bladder volume residual measures 0 cc. IMPRESSION: Bilateral perinephric fluid surrounding measuring 5cm involving both kidneys. No hydronephrosis.
--- NOTE | 2024-06-18 13:51 | DVHPN2 ---
Progress Note Date Seen: Jun 18, 2024 Medical Necessity Reason Pt with a Central, PICC or Fol: Yes The following are medically ne: Cheema Catheter Subjective Patient reports: Feels better Review of Systems: NEURO:Abnormal Objective vital signs Vital Sign Date Time Temp Pulse Resp B/P (MAP) Pulse Ox O2 Delivery O2 Flow Rate FiO2 06/18/24 08:37 99.3 65 17 118/65 (82) 94 99.3 06/17/24 20:00 Room Air* 0 21 Total Intake and Output 06/17/24 06/17/24 06/18/24 15:00 23:00 07:00 Intake Total 50 ml 225 ml 500 ml Output Total 800 ml 700 ml 650 ml Balance -750 ml -475 ml -150 ml medications Current Medications Medications Dose Ordered Sig/Louisa Route Start Time Stop Time Status Last Admin Dose Admin Norepinephrine Bitartrate 16 mg/ Sodium Chloride 250 ml @ 1.875 mls/ hr Q24H IV 06/16/24 16:15 Hold 06/16/24 16:36 1.875 MLS/HR Acetaminophen 650 mg Q4HP PRN PO 06/16/24 17:15 06/16/24 17:27 650 MG Ondansetron HCl 4 mg Q4HP PRN IV 06/16/24 19:30 Acetaminophen 650 mg Q6HP PRN PO 06/16/24 19:30 Nitroglycerin 0.4 mg Q5MINP PRN SL 06/16/24 19:30 Morphine Sulfate 2 mg Q30M PRN IV 06/16/24 19:30 Ceftriaxone Sodium 50 ml @ 100 mls/hr DAILY@09 IV 06/16/24 20:24 06/18/24 09:38 100 MLS/HR Lactated Ringer's 1,000 ml @ 75 mls/hr [id number] IV 06/17/24 14:45 06/18/24 05:16 75 MLS/HR Examination: GENERAL:Normal, CVS:Normal, NEURO:Abnormal laboratory and microbiology Laboratory Tests 06/18/24 05:25 06/17/24 06:44 Test 06/18/24 05:25 Range/Units Serum Glucose 87 74-106 mg/dL Microbiology Date/Time Source Procedure Growth Status 06/16/24 17:10 Urine - Cheema Port Urine Culture - Final Complete 06/16/24 10:53 Blood Blood Culture - Preliminary NO GROWTH AFTER 48 HOURS OF INCUBATION. Resulted Problem List/Assessment/Plan Problem List/Assessment/Plan Acute kidney injury hemodynamically mediated in the setting of hypotension and decreased renal perfusion Chronic kidney disease unspecified baseline unknown Hypotension Altered mental status rule out sepsis Agree with IV fluid hydration Cardiology on the case Status post echocardiogram wnl Avoid contrast studies Patient currently has Cheema catheter with urine output that is improving. Acute kidney injury is resolving Continue with IV fluid hydration and workup of altered mental status. From a nephrology standpoint patient is improving I will sign off the case. We will obtain outpatient renal Clinic follow-up. No further recommendations at this time. Rest of care as per primary medical team Plan discussed with: Patient MIKE HURTADO MD Jun 18, 2024 13:51
[2024-06-18 15:00] LABS: INR 1.07 (0.9-1.15); Partial Thromboplastin Time 34.6 SEC (24.5-34.5); Prothrombin Time 11.3 sec (9.3-11.8)
--- NOTE | 2024-06-18 16:57 | DVHPN2 ---
Subjective Patient reports having generalized weakness. Reviewed: Care Plan, Labs, Medications Changes from previous H/P or p: No Changes General: Per HPI Objective Vitals Vital Signs Date Time Temp Pulse Resp B/P (MAP) Pulse Ox O2 Delivery O2 Flow Rate FiO2 06/18/24 08:37 99.3 65 17 118/65 (82) 94 99.3 06/17/24 20:00 Room Air* 0 21 Intake/Output Intake and Output 06/18/24 07:00 Intake Total 775 ml Output Total 2150 ml Balance -1375 ml Intake Oral 500 ml IV Total 275 ml Output Urine Total 2150 ml # Bowel Movements 2 General Appearance: Alert, Oriented X3, Cooperative, No acute distress HEENT: Atraumatic Lungs: Clear to auscultation, Normal air movement Cardiovascular: Normal S1, Normal S2 Abdomen: Normal bowel sounds, Soft, No tenderness Genitourinary: No Apparent Abnormalities Neuro: Normal speech Psych/Mental Status: Mental status NL Medications Current Medications Medications Dose Ordered Sig/Louisa Route Start Time Stop Time Status Last Admin Dose Admin Norepinephrine Bitartrate 16 mg/ Sodium Chloride 250 ml @ 1.875 mls/ hr Q24H IV 06/16/24 16:15 Hold 06/16/24 16:36 1.875 MLS/HR Ondansetron HCl 4 mg Q4HP PRN IV 06/16/24 19:30 Acetaminophen 650 mg Q6HP PRN PO 06/16/24 19:30 Nitroglycerin 0.4 mg Q5MINP PRN SL 06/16/24 19:30 Morphine Sulfate 2 mg Q30M PRN IV 06/16/24 19:30 Ceftriaxone Sodium 50 ml @ 100 mls/hr DAILY@09 IV 06/16/24 20:24 06/18/24 09:38 100 MLS/HR Lactated Ringer's 1,000 ml @ 75 mls/hr [id number] IV 06/17/24 14:45 06/18/24 05:16 75 MLS/HR Amlodipine Besylate 2.5 mg DAILY PO 06/19/24 10:00 Atorvastatin Calcium 20 mg DAILY PO 06/19/24 10:00 Gabapentin 300 mg DAILY PO 06/19/24 10:00 Multivitamins 1 tab DAILY PO 06/19/24 10:00 Prednisone 5 mg DAILY PO 06/19/24 10:00 Laboratory Results Laboratory Tests 06/17/24 06:44 06/18/24 05:25 Chemistry Test 06/18/24 05:25 Calcium Level 8.8 mg/dL (8.7-10.4) Coagulation Test 06/18/24 14:29 Prothrombin Time 11.3 sec (9.3-11.8) Prothrombin Time INR 1.07 (0.9-1.15) Activated Partial Thromboplast Time 34.6 SEC (24.5-34.5) H Urinalysis Test 06/16/24 17:10 Urine Color Yellow (Yellow) Urine Clarity Clear (Clear) Urine pH 5.5 (5.0-9.0) Urine Specific [place] 1.016 (1.001-1.035) Urine Protein Trace (Negative) H Urine Ketones Negative (Negative) Urine Blood Negative /uL (Negative) Urine Nitrite Negative (Negative) Urine Bilirubin Negative (Negative) Urine Urobilinogen Normal mg/dL (Negative) Urine Leukocyte Esterase Negative /uL (Negative) Urine RBC 1 /hpf (0 - 3) Urine WBC <1 /hpf (0 - 3) Urine Squamous Epithelial Cells None seen /hpf (<5) Urine Bacteria None seen /hpf (None Seen) Urine Hyaline Casts Few /lpf (0 - 2) Urine Glucose Normal mg/dL (Normal) Microbiology Microbiology Date/Time Source Procedure Growth Status 06/16/24 17:10 Urine - Cheema Port Urine Culture - Final Complete 06/16/24 10:53 Blood Blood Culture - Preliminary NO GROWTH AFTER 48 HOURS OF INCUBATION. Resulted Labs and/or images reviewed: Labs reviewed by me, Image(s) reviewed by me Assessment/Plan Assessment/Plan Impression: -metabolic encephalopathy, unknown etiology -acute,? Chronic renal failure -primary hypertension -according to history of diabetes mellitus -reported history of hypertension -reported history of dyslipidemia -Melvi's disease Plan: Events: Patient more alert and oriented. Discussion was made with the patient's daughter who states that he has a history of dyslipidemia, hypertension, diabetes mellitus, as well as Melvi's disease. Currently he gets Rituxan shots once a year, as well as prednisone 5 mg p.o. daily. -restart prednisone -check WICHO, rheumatoid factor : Pending -gentle IV hydration -echocardiogram reviewed -cultures negative -restart antihypertensives -repeat labs in a.m. Total time spent with patient discussing and formulating plan of care: 35 minutes. This medical document was created using an electronic medical record system with [employer] dictation system. Although this document has been carefully reviewed, there may still be some phonetic and typographical errors. These areas are purely typographical due to imperfections of the software programs, and do not reflect any compromise in the patient's medical care. Plan discussed with: Patient, Other (RN) My Orders Orders - STEPHANY JULIO NP Procedure Category Date Status Time D/C Anette BORIS 06/18/24 In Process 15:05 Basic Metabolic Panel LAB 06/19/24 Verified 04:00 Complete Blood Count LAB 06/19/24 Verified 04:00 Amlodipine Tablet PHA 06/19/24 In Process (Norvasc Tablet) 10:00 Atorvastatin (Lipitor) PHA 06/19/24 In Process 10:00 Gabapentin Capsule PHA 06/19/24 In Process (Neurontin Capsule) 10:00 Multiple Vitamin PHA 06/19/24 In Process Tablet (Mvi Tab) 10:00 Prednisone Tablet PHA 06/19/24 In Process 10:00 Date of Service: Jun 18, 2024 Billing Provider: STEPHANY JULIO NP Common Visit Codes: [id number] INP/OBS CARE(HIGH) STEPHANY JULIO NP Jun 18, 2024 16:57
[2024-06-18 17:14] VITALS: BP 135/61; PULSE 64; RESP 21; TEMP 99.3; O2SAT 93
[2024-06-18 20:57] VITALS: BP 113/42; PULSE 68; RESP 19; TEMP 99; O2SAT 95
[2024-06-19 01:00] VITALS: BP 126/58; PULSE 61; RESP 19; TEMP 98.5; O2SAT 94
[2024-06-19 04:32] VITALS: BP 136/52; PULSE 65; RESP 19; TEMP 99.1; O2SAT 94
[2024-06-19 06:09] LABS: Basophils # (auto) 0 10 ^3/uL (0-0.2); Basophils % (auto) 0.5 % (0.0-2.0); Eosinophils # (auto) 0.3 10 ^3/uL (0-0.8); Hematocrit 30.6 % (41.0-53.0); Lymphocytes # (auto) 1.3 10 ^3/uL (0.4-5.4); Monocytes # (auto) 0.5 10 ^3/uL (0-1.3); Red Cell Distribution Width 13.7 % (11.8-14.3)
[2024-06-19 06:11] LABS: Hemoglobin 10.3 g/dL (13.5-17.5); Lymphocytes % (auto) 22.3 % (10.0-50.0); Mean Corpuscular Hemoglobin 34.2 pg (28.0-32.0); Mean Corpuscular Hgb Conc. 33.6 g/dL (32.0-36.0); Mean Corpuscular Volume 101.5 fL (80.0-100.0); Monocytes % (auto) 7.7 % (0.0-12.0); Neutrophils # (auto) 3.9 10 ^3/uL (1.6-8.6); Neutrophils % (auto) 64.5 % (37.0-80.0); Nucleated Red Blood Cells % 0.1 %; Platelet Count (auto) 121 10^3/uL (140-450); Red Blood Cells 3.02 10^6/uL (4.5-5.90)
[2024-06-19 06:59] LABS: Anion Gap 8 (5-15)
[2024-06-19 07:04] LABS: BUN/Creatinine Ratio 15.2 (10.0-20.0)
[2024-06-19 07:06] LABS: Blood Urea Nitrogen 28 mg/dL (9-23); Calcium 8.8 mg/dL (8.7-10.4); Carbon Dioxide 22 mmol/L (20-31); Chloride 112 mmol/L (98-107); Glucose 84 mg/dL (74-106); Potassium 4.4 mmol/L (3.5-5.1); Sodium 142 mmol/L (136-145)
[2024-06-19 08:15] VITALS: PULSE 61; RESP 16; O2SAT 93
[2024-06-19 09:00] VITALS: BP 140/70; PULSE 61; RESP 16; TEMP 97.5; O2SAT 95
[2024-06-19] MEDS: MULTIPLE VITAMIN TAB PO SCH (10:08)
[2024-06-19] MEDS: GABAPENTIN 300 MG CAP PO SCH (10:08)
[2024-06-19] MEDS: predniSONE 5 MG TAB PO SCH (10:08)
[2024-06-19] MEDS: ATORVASTATIN 20 MG TAB PO SCH (10:09)
[2024-06-19] MEDS: amLODIPine BESYLATE 5 MG TAB PO SCH (10:09)
[2024-06-19] MEDS ORDERED: AUG875T PO (10:31)
--- NOTE | 2024-06-19 10:37 | DVHDS2 ---
Discharge Summary Date of Admission Jun 16, 2024 at 19:20 Date of Discharge: Jun 19, 2024 Admitting Diagnosis Metabolic encephalopathy Labs/Diagnostic Data: Laboratory Results Test 06/19/24 05:22 06/18/24 14:29 06/17/24 06:44 06/16/24 18:21 White Blood Count 6.0 10^3/uL (4.4-10.8) Red Blood Count 3.02 10^6/uL (4.5-5.90) Hemoglobin 10.3 g/dL (13.5-17.5) Hematocrit 30.6 % (41.0-53.0) Mean Corpuscular Volume 101.5 fL (80.0-100.0) Mean Corpuscular Hemoglobin 34.2 pg (28.0-32.0) Mean Corpuscular Hemoglobin Concent 33.6 g/dL (32.0-36.0) Red Cell Distribution Width 13.7 % (11.8-14.3) Platelet Count 121 10^3/uL (140-450) Mean Platelet Volume 8.7 fL (6.9-10.8) Neutrophils (%) (Auto) 64.5 % (37.0-80.0) Lymphocytes (%) (Auto) 22.3 % (10.0-50.0) Monocytes (%) (Auto) 7.7 % (0.0-12.0) Eosinophils (%) (Auto) 5.0 % (0.0-7.0) Basophils (%) (Auto) 0.5 % (0.0-2.0) Neutrophils # (Auto) 3.9 10 ^3/uL (1.6-8.6) Lymphocytes # (Auto) 1.3 10 ^3/uL (0.4-5.4) Monocytes # (Auto) 0.5 10 ^3/uL (0-1.3) Eosinophils # (Auto) 0.3 10 ^3/uL (0-0.8) Basophils # (Auto) 0 10 ^3/uL (0-0.2) Nucleated Red Blood Cells 0.1 % Sodium Level 142 mmol/L (136-145) Potassium Level 4.4 mmol/L (3.5-5.1) Chloride Level 112 mmol/L (98-107) Carbon Dioxide Level 22 mmol/L (20-31) Anion Gap 8 (5-15) Blood Urea Nitrogen 28 mg/dL (9-23) Creatinine 1.84 mg/dL (0.700-1.30) Glomerular Filtration Rate Calc 37 mL/min (>90) BUN/Creatinine Ratio 15.2 (10.0-20.0) Serum Glucose 84 mg/dL (74-106) Calcium Level 8.8 mg/dL (8.7-10.4) Prothrombin Time 11.3 sec (9.3-11.8) Prothrombin Time INR 1.07 (0.9-1.15) Activated Partial Thromboplast Time 34.6 SEC (24.5-34.5) Erythrocyte Sedimentation Rate 7 mm/hr (0-20) Hemoglobin A1c 5.6 % A1C (<5.7) C-Reactive Protein High Sensitivity 5.87 mg/dL (<1.0) Total Bilirubin 0.2 mg/dL (0.2-1.0) Aspartate Amino Transferase (AST) 20 U/L (13-40) Alanine Aminotransferase (ALT) 11 U/L (7-40) Alkaline Phosphatase 55 U/L (46-116) Total Protein 5.3 g/dL (5.7-8.2) Albumin 3.5 g/dL (3.2-4.8) Test 06/16/24 17:10 06/16/24 13:20 06/16/24 12:27 06/16/24 11:17 Urine Color Yellow (Yellow) Urine Clarity Clear (Clear) Urine pH 5.5 (5.0-9.0) Urine Specific [place] 1.016 (1.001-1.035) Urine Protein Trace (Negative) Urine Ketones Negative (Negative) Urine Blood Negative /uL (Negative) Urine Nitrite Negative (Negative) Urine Bilirubin Negative (Negative) Urine Urobilinogen Normal mg/dL (Negative) Urine Leukocyte Esterase Negative /uL (Negative) Urine RBC 1 /hpf (0 - 3) Urine WBC <1 /hpf (0 - 3) Urine Squamous Epithelial Cells None seen /hpf (<5) Urine Bacteria None seen /hpf (None Seen) Urine Hyaline Casts Few /lpf (0 - 2) Urine Glucose Normal mg/dL (Normal) POC Glucose 117 mg/dl (70-106) Lactic Acid Level 1.1 mmol/L (0.4-2.0) Troponin I High Sensitivity 12 ng/L (</=54) Influenza Type A Antigen Negative (Negative) Influenza Type B Antigen Negative (Negative) SARS-CoV-2 Antigen (Rapid) Negative (NEGATIVE) Test 06/16/24 10:53 B-Type Natriuretic Peptide 85.54 pg/mL (0-100) Other Laboratory Tests 06/19/24 05:22 Brief Hx & Hospital Course: History of Present Illness 78-year-old male presents for evaluation of altered mental status. Patient was noted to be slightly confused at home where they checked his blood pressure was noted to be low. In route patient was noted to be tachycardic in the 130s on arrival patient's blood pressure was in the 70s. Patient is currently oriented x3. Denies chest pain or shortness for breath. Course of hospitalization: While in the emergency room, patient was started on norepinephrine drip, with central line placement. Patient was given IV hydration. Antibiotic therapy was started. The patient was neurological status has improved. While he did not have any medical history that he was able to provide at the time of admission, discussion with the patient's daughter reveals that he has a history of Mara's granulomatosis. Patient is currently being treated with prednisone 5 mg p.o. daily as well as Rituxan injections by his rat trapper. At this time, all blood cultures have been negative. Nephrology consultation was obtained given the patient's renal function showing questionable acute kidney injury versus CKD, with the patient's renal function improving after IV hydration. Patient will be discharged home today on continue antibiotic therapy with Augmentin 875 mg p.o. twice a day for seven days. He was instructed to follow up with his PCP in 1-2 weeks, or the discharge Clinic in one week if he was unable to obtain an appointment. The patient was agreeable with discharge plan. All questions answered. Physical exam General: Alert and Oriented x3. No acute distress. Well-nourished. Eyes: EOMI. Anicteric. HENT: Moist mucous membranes. Lungs: Clear to auscultation bilaterally. No accessory muscle use. Cardiovascular: Regular rate and rhythm. No murmur. No JVD. Abdomen: Soft, non-tender and non-distended. No palpable masses. Extremities: No edema. Non-tender. Skin: No rashes or lesions. Warm. Neurologic: No focal neurological deficits. CN II-XII grossly intact, but not individually tested. Psychiatric: Cooperative. Appropriate mood and affect. Total time spent with patient discussing and formulating plan of care: 35 minutes. This medical document was created using an electronic medical record system with [employer] system. Although this document has been carefully reviewed, there may still be some phonetic and typographical errors. These areas are purely typographical due to imperfections of the software programs, and do not reflect any compromise in the patient's medical care. Consults/Reason for consult Nephrology: Acute on chronic kidney injury Condition at Discharge: Guarded Final Diagnosis/Problems List Sepsis with shock, probable viral etiology Secondary Diagnosis: -metabolic encephalopathy, secondary to sepsis -acute kidney. , vasomotor nephropathy -primary hypertension -according to history of diabetes mellitus -hypertension -dyslipidemia -Melvi's granulomatosis Discharge Disposition: Home Discharge Instruct/Medications Diet: Consistent carbohydrate, Cardiac 2g Na,low cholest Medications: Continue home medications Augmentin 875 mg p.o. b.i.d. x7 days 36 Discharge Statement: "Patient was advised to return to the ER or call 911 if any headaches, dizziness, shortness of breath, chest pain, abdominal pain, bleeding, fevers, or worsening of medical condition. Patient was counseled about treatment plan, medications, possible side effects, patientverbalized understanding. All questions were answered to the best of my ability. This discharge took greater then 30 minutes in planning, reviewing documentation, counseling the patient, and discussing with other team members." ASSESSMENT ASSESSMENT Assessment Date of Service: Jun 19, 2024 Billing Provider: STEPHANY JULIO NP Common Visit Codes: 51328-CSF/OBS DISCH DAY >30min STEPHANY JULIO NP Jun 19, 2024 10:37
--- NOTE | 2024-06-19 11:05 | DVH ---
CHEST RADIOGRAPH Indication: chf Technique: Single frontal view of the chest was obtained Comparison: XY CHEST PORTABLE on DOS: 06/16/24, XY CHEST PORTABLE on DOS: 06/16/24 FINDINGS: Lines and Tubes: Left central venous catheter tip in the SVC. Lungs: No focal consolidation. Pleura: No effusion. No pneumothorax. Cardiomediastinal contours: Unremarkable Bones: No acute osseous abnormality. IMPRESSION: No acute cardiopulmonary disease.
[2024-06-19 12:56] VITALS: BP 129/66; PULSE 67; RESP 16; TEMP 97.9; O2SAT 94
[2024-06-19 14:16] VITALS: BP 129/66; PULSE 67; RESP 16; TEMP 97.9; O2SAT 94
== END 2024-06-19 15:15 | disposition home or self-care (01) | DRG 871 ==
LOC: ER 10:20 → EDBD 10:20 → TELE 19:20 → TELE-WESTW 06-17 16:08 → WEST WING 06-17 16:10
PROVIDERS: ADMIT Nurse Practitioner Acute Care; ATTEND Nurse Practitioner Acute Care
DX: A41.89 Other specified sepsis (principal); G93.41 Metabolic encephalopathy; N17.0 Acute kidney failure with tubular necrosis; R65.21 Severe sepsis with septic shock; M31.30 Wegener's granulomatosis without renal involvement; Z20.822 Contact with and (suspected) exposure to COVID-19; E87.5 Hyperkalemia; E78.5 Hyperlipidemia, unspecified; E11.22 Type 2 diabetes mellitus with diabetic chronic kidney disease; I12.9 Hypertensive chronic kidney disease with stage 1 through stage 4 chronic kidney disease, or unspecified chronic kidney disease; N18.9 Chronic kidney disease, unspecified
CPT/HCPCS: 36415; 70450; 71045; 76775; 80048; 80053; 81001; 82962; 83036; 83516; 83605; 83880; 84484; 85025; 85610; 85652; 85730; 86141; 86225; 86235; 86431; 87040; 87086; 87426; 87804; 93005; 93306; 94640; 99291; G0378; J1815; J2543